=== PATIENT | female | born 1995 | race Caucasian/White ===

== ENCOUNTER 2016-09-28 16:36 | Emergency (ER) | payer BC ==
[~2016-09-28] VITALS: Ht 170.2 cm; Wt 66.6 kg
[~2016-09-28 16:36] MED LIST: MEDR150I INJ; SERT50TA PO
[2016-09-28 16:42] VITALS: TEMP 36.8; Ht 170.2 cm; Wt 66.6 kg
[2016-09-28] MEDS ORDERED: HYDR25CA PO (19:31)
[2016-09-28 19:48] VITALS: BP 119/77; PULSE 60; O2SAT 97
--- NOTE | 2016-09-28 21:47 | EMERGENCY ROOM VISIT NOTE ---
History Report prepared by Ceasar: Karsten Varner Under the Supervision of: Dr. Mike Huntley M.D. First contact with patient: 16:47 Chief Complaint: ANXIETY Stated Complaint: ANXIETY ATTACK History of Present Illness The patient is a 21 year old female who presents to the Emergency Room with complaints of persistent chest and throat tightness starting about an hour ago. She currently complains of anxiety and depression. Her current symptoms are similar to her past symptoms with an anxiety attack. She denies any suicidal or homicidal ideation. She denies any major life stressors that may have contributed to her symptoms. She reports a normal appetite and a normal fluid intake. The patient has a history of anxiety and depressed which is managed with Zoloft 50 mg per day and 0.5 mg Ativan. The patient does not like taking Ativan due to the increased sleepiness. She does not have any other medical problems. She denies any recent travels,, hemoptysis, swelling of calves, history of cancer, recent surgeries, estrogen use or previous blood clots. She also denies any history of diabetes, hypertension, hyperlipidemia or CAD. She denies any family history of sudden deaths. Pt denies headache, change in vision , fevers, chest pain, shortness of breath, nausea, vomiting, diarrhea, pain with urination, and melena. Source of History: patient Onset: about an hour ago Position: throat, chest Quality: other (tightness) Timing: other (persistent) Associated Symptoms: No SOB, No chest pain, No diarrhea, No fevers, No nausea, No vomiting Review of Systems See HPI for pertinent positives & negatives. A total of 10 systems reviewed and were otherwise negative. Past Medical & Surgical Medical Problems: (1) Anxiety Family History Patient reports no known family medical history. Social History Smoking Status: Never Smoker Alcohol Use: occasionally Marital Status: single Occupation Status: student Current/Historical Medications Scheduled Hydroxyzine Pamoate (Vistaril), 1 CAP PO BID Sertraline (Zoloft), 50 MG PO DAILY Allergies Coded Allergies: No Known Allergies (Unverified , 09/28/16) Physical Exam Vital Signs Date Time Temp Pulse Resp B/P Pulse Ox O2 Delivery O2 Flow Rate FiO2 09/28/16 19:48 60 18 119/77 97 Room Air 09/28/16 16:42 36.8 83 18 158/89 97 Room Air Physical Exam GENERAL: Sitting up in bed, alert, well appearing, well nourished, no distress, non-toxic EYE EXAM: normal conjunctiva OROPHARYNX: no exudate, no erythema, lips, buccal mucosa, and tongue normal and mucous membranes are moist NECK: supple, no nuchal rigidity, no adenopathy, non-tender LUNGS: Clear to auscultation. Normal chest wall mechanics HEART: no murmurs, S1 normal and S2 normal ABDOMEN: abdomen soft, non-tender, normo-active bowel sounds, no masses, no rebound or guarding. UPPER EXTREMITIES: upper extremities are grossly normal. LOWER EXTREMITIES: No pitting edema. NEURO EXAM: Normal sensorium PSYCHIATRIC: Patient denies homicidal ideation or suicidal ideation, denies visual or auditory hallucinations, admits to being depressed but looking forward to graduation in the summer and obtaining a job with possible research in [place] [employer]. Medical Decision & Procedures Laboratory Results Test 09/28/16 16:55 Urine Test NEG (NEG) Laboratory results per my review. ECG Indication: other (Chest tightness) Rate (beats per minute): 56 Rhythm: sinus bradycardia Findings: no ectopy, other (Normal axis) ED Course ED COURSE: Vital signs were reviewed and showed hypertensive The patients medical record was reviewed The above diagnostic studies were performed and reviewed. ED treatments and interventions as stated above. 1647: The patient was evaluated in room A07. A complete history and physical examination was performed. 193: The patient was evaluated by Nyasia, the psych liaison, and she recommended following up as an outpatient. She has set up an outpatient follow up. Upon reevaluation, the patient is resting comfortably.I discussed my findings with the patient and she understands and agrees with the treatment plan. Based on the patients age, coexisting illnesses, exam and lab findings the decision to treat as an outpatient was made. The patient remained stable while under my care. The patient appeared well at the time of discharge. Medical Decision Differential diagnosis: Etiologies such as mood disorder, infection, hypoglycemia, electrolyte abnormalities, cardiac sources, intracerebral event, toxicologic, neurologic, as well as others were entertained. Patient is a 21-year-old female with a past medical history of anxiety and depression and presents the ER for worsening anxiety. She has been having anxiety attacks all her life and notes that this feels exactly the same. She does have a little tightness in her chest and throat which is typical for her. She has no cardiac or PE risk factors. EKG was unremarkable. was negative. Through discussion her anxiety improved. She has no suicidal or homicidal ideations. Denies any auditory or visual hallucinations. Patient is looking forward to graduation in the summer and possibly obtaining a job in [employer] which is her major. She was evaluated by our psychiatric liaison who recommended following up as an outpatient. Patient was agreeable with this. She was given a short prescription for Vistaril as she does not like the Ativan because this sedates her too much. She was instructed to not take either within 8 hours each other. She will try the Vistaril and see if this gives her additional relief. If not she will try half of her usual tab of Ativan. Discussed with Pt concerning signs and symptoms to watch out for. Pt was instructed to follow up with their PCP and discussed with the patient their option to return to the ED at anytime for persistent or worsening symptoms. The appropriate anticipatory guidance and out-patient management, including indications for return to the emergency department, were explained at length to the patient and understood. Impression Primary Impression: Acute anxiety Scribe Attestation The scribe's documentation has been prepared under my direction and personally reviewed by me in its entirety. I confirm that the note above accurately reflects all work, treatment, procedures, and medical decision making performed by me. Departure Information Dispostion Home / Self-Care Prescriptions Hydroxyzine Pamoate (VISTARIL) 25 Mg Cap 1 CAP PO BID for Anxiety for 5 Days, #10 CAP 0 Refills Prov: Joaquin Cespedes, DO 09/28/16 Referrals [facility] (PCP) Forms HOME CARE DOCUMENTATION FORM, IMPORTANT VISIT INFORMATION Patient Instructions Anxiety Body Response, My [facility] Additional Instructions Please follow up with your primary care doctor or if you are a student [facility] with in the next 24 hours. Any worsening of your symptoms, please return to the ED immediately. This includes thoughts of wanting to harm yourself, thoughts of wanting to harm someone else, unable to eat or drink, not taking care of yourself, or any other concerning signs or symptoms from your standpoint. Please make sure you follow up with your primary care doctor or away so this for psychology and additional medication changes.
== END 2016-09-28 19:48 | disposition home or self-care (01) ==
LOC: C.EDB 16:38 → C.EDA 19:48
DX: F41.9 Anxiety disorder, unspecified (principal); F32.9 Major depressive disorder, single episode, unspecified; Z79.899 Other long term (current) drug therapy